=== PATIENT | female | born 1955 | race Two or more races ===

== ENCOUNTER 2018-07-18 15:49 | Emergency (ER) | END 2018-07-18 16:47 | disposition home or self-care (01) | DX: T21.24XA Burn of second degree of lower back, initial encounter (principal); T31.0 Burns involving less than 10% of body surface; E03.9 Hypothyroidism, unspecified; X11.8XXA Contact with other hot tap-water, initial encounter; Y93.89 Activity, other specified; Y92.89 Other specified places as the place of occurrence of the external cause; Y99.8 Other external cause status ==